=== PATIENT | male | born 1945 | race Caucasian/White ===

== ENCOUNTER 2019-10-01 03:49 | Inpatient (IN) ==
[2019-10-01] MEDS ORDERED: 0.9 % Sodium Chloride 500 ML IVC STA (04:05)
[2019-10-01 05:08] LABS: Hemoglobin 9.4 g/dL (12.9-16.9); Mean Corpuscular Volume 81.7 fL (83.0-100.0)
[2019-10-01 05:09] LABS: Hematocrit 29.1 % (37.5-50.1); Immature Granulocytes % 2.3 % (0-4); Mean Corpuscular HGB Conc 32.3 g/dL (31.6-35.5); Mean Corpuscular Hemoglobin 26.4 pg (28.0-33.3); Mean Platelet Volume 8.2 fL (9.4-12.4); Monocytes % 3.4 %; Platelet Count 634 K/mcL (140-400); Red Blood Count 3.56 M/mcL (4.19-5.50); Red Cell Distribution Width 14.7 % (11.5-14.5); Segmented Neutrophils % 93.1 %
[2019-10-01 05:10] LABS: Basophils # 0.1 K/mcL (0.0-0.2); Basophils % 0.2 %; Lymphocytes # 0.4 K/mcL (0.6-4.6); Monocytes # 1.5 K/mcL (0.0-1.3); Neutrophils # 39.8 K/mcL (1.6-8.9)
[2019-10-01 05:11] LABS: White Blood Count 42.7 K/mcL (4.3-11.1)
[2019-10-01 05:12] LABS: INR 1.4; Prothrombin Time 15.5 Seconds (9.4-12.1)
[2019-10-01 05:32] LABS: BUN/Creatinine Ratio 24 (6-26); Blood Urea Nitrogen 19 mg/dL (8-23); Calcium 9.9 mg/dL (8.6-10.3); Carbon Dioxide 30 mEq/L (23-29); Chloride 98 mEq/L (98-107); Glucose 115 mg/dL (70-105); Osmolality,Calculated 283 (280-300); Potassium 3.6 mEq/L (3.5-5.1); Sodium 135 mEq/L (136-145); Troponin I 1.03 ng/mL (< 0.04); eGFR For African Americans > 60 (> 60); eGFR For Non-African Americans > 60 (> 60)
[2019-10-01 05:36] LABS: Platelet Estimate Marked Increase (Normal)
[2019-10-01 05:53] LABS: Bilirubin,Urine Negative (Negative); Blood,Urine Large (Negative); Clarity,Urine Clear (Clear); Color,Urine Yellow (Yellow); Glucose,Urine (UA) Normal (Normal); Ketones,Urine Negative (Negative); Leukocyte Esterase,Urine Negative (Negative); Nitrite,Urine Negative (Negative); Protein,Urine 30 mg/dL (Neg-Trace); Specific Gravity,Urine 1.012 (1.010-1.025); Urobilinogen,Urine Normal (Normal)
[2019-10-01 05:56] LABS: Bacteria,Urine None Seen per hpf (None-Few); Hyaline Casts,Urine None Seen per lpf (None-Few); RBC,Urine 0-3 per hpf (0-3); Squamous Epithelial Cell,Urine Many per lpf (None-Few); WBC,Urine 0-3 per hpf (0-3)
[2019-10-01 05:56] LABS: Creatine Kinase 2815 Units/L (30-223)
[2019-10-01] MEDS ORDERED: 0.9 % Sodium Chloride 1,000 ML IVC STA (05:59)
[2019-10-01] MEDS ORDERED: Aspirin 81 MG TAB.CHEW PO STA (06:12)
[2019-10-01] MEDS ORDERED: Ondansetron 4 MG/2 ML VIAL IVP PRN (07:31)
[2019-10-01] MEDS ORDERED: Naloxone 0.4 MG/ML INJ IVP PRN (07:31)
[2019-10-01] MEDS: 0.9 % Sodium Chloride 1,000 ML IVC SCH ×2 (08:32→21:24)
[2019-10-01] MEDS: polyethylene glycoL 3350 17 GM POWD.PACK PO SCH (10:05)
[2019-10-01] MEDS: Baclofen 10 MG TABLET PO SCH ×2 (10:05→21:23)
[2019-10-01] MEDS: Cholecalciferol (D-3) 1,000 UNIT (25MCG) TABLET PO SCH ×2 (10:05→21:24)
[2019-10-01] MEDS: Cyanocobalamin (B-12) 1,000 MCG TABLET PO SCH (10:05)
[2019-10-01] MEDS: Pregabalin 75 MG CAPSULE PO SCH ×2 (10:05→21:22)
[2019-10-01] MEDS: Budesonide/Formoterol 160/4.5 1 PUFF INH IH SCH ×2 (10:11→20:28)
[2019-10-01] MEDS ORDERED: Ipratropium/Albuterol Neb 3 ML IH PRN (12:15)
[2019-10-01] MEDS: Piperacillin/Tazobactam 3.375 GM in 0.9 % Sodium Chloride Mini Bag 100 ML IVPB SCH (16:38)
[2019-10-01] MEDS: *HR* Heparin 5,000 UNIT/ML VIAL SQ SCH (16:39)
[2019-10-01] MEDS: *HR* HYDROcodone/Acet 5/325 mg TABLET PO PRN (21:22)
[2019-10-01] MEDS: Mirtazapine 15 MG TABLET PO SCH (21:22)
[2019-10-01] MEDS: Megestrol Acetate 400 MG/10 ML UDC PO SCH (21:23)
[2019-10-02] MEDS: Piperacillin/Tazobactam 3.375 GM in 0.9 % Sodium Chloride Mini Bag 100 ML IVPB SCH ×4 (00:27→23:04)
[2019-10-02 00:46] LABS: Basophils % 0.1 %; Eosinophils % 0.1 %; Immature Granulocytes % 1.4 % (0-4); Red Cell Distribution Width 14.9 % (11.5-14.5)
[2019-10-02 00:48] LABS: Hematocrit 24.9 % (37.5-50.1); Lymphocytes # 0.4 K/mcL (0.6-4.6); Lymphocytes % 1.6 %; Mean Corpuscular HGB Conc 32.1 g/dL (31.6-35.5); Mean Corpuscular Hemoglobin 26.2 pg (28.0-33.3); Mean Corpuscular Volume 81.6 fL (83.0-100.0); Mean Platelet Volume 8.3 fL (9.4-12.4); Monocytes # 1.2 K/mcL (0.0-1.3); Monocytes % 4.9 %; Neutrophils # 23.1 K/mcL (1.6-8.9); Platelet Count 572 K/mcL (140-400); Red Blood Count 3.05 M/mcL (4.19-5.50); Segmented Neutrophils % 91.9 %; White Blood Count 25.1 K/mcL (4.3-11.1)
[2019-10-02 01:03] LABS: BUN/Creatinine Ratio 23 (6-26); Blood Urea Nitrogen 15 mg/dL (8-23); Calcium 8.4 mg/dL (8.6-10.3); Carbon Dioxide 27 mEq/L (23-29); Chloride 103 mEq/L (98-107); Glucose 139 mg/dL (70-105); Osmolality,Calculated 291 (280-300); Potassium 3.2 mEq/L (3.5-5.1); Sodium 139 mEq/L (136-145); eGFR For African Americans > 60 (> 60); eGFR For Non-African Americans > 60 (> 60)
[2019-10-02] MEDS ORDERED: Potassium Chloride Elixir 20 MEQ/15 ML UDC PO ONE (07:30)
[2019-10-02] MEDS: 0.9 % Sodium Chloride 1,000 ML IVC SCH (07:32)
[2019-10-02] MEDS: *HR* Heparin 5,000 UNIT/ML VIAL SQ SCH ×2 (07:33→17:04)
[2019-10-02] MEDS ORDERED: POTASSIUM CHLORIDE 10 MEQ PO SCH (09:00)
[2019-10-02] MEDS ORDERED: Isovue-370 500 ML BOTTLE IVP ONE (09:10)
[2019-10-02] MEDS: Megestrol Acetate 400 MG/10 ML UDC PO SCH ×2 (10:13→19:57)
[2019-10-02] MEDS: Pregabalin 75 MG CAPSULE PO SCH ×2 (10:14→19:57)
[2019-10-02] MEDS: Baclofen 10 MG TABLET PO SCH ×2 (10:14→19:49)
[2019-10-02] MEDS: Cyanocobalamin (B-12) 1,000 MCG TABLET PO SCH (10:14)
[2019-10-02] MEDS: Cholecalciferol (D-3) 1,000 UNIT (25MCG) TABLET PO SCH ×2 (10:15→19:52)
[2019-10-02] MEDS: Budesonide/Formoterol 160/4.5 1 PUFF INH IH SCH ×2 (10:35→20:15)
[2019-10-02 14:08] LABS: Folate 14.1 ng/mL (3.0-16.0)
[2019-10-02] MEDS ORDERED: Gadolinium Contrast Agent (WT Based) IV PRN (15:35)
[2019-10-02] MEDS: Mirtazapine 15 MG TABLET PO SCH (19:57)
[2019-10-02] MEDS: Aspirin Enteric Coated 81 MG Tablet PO SCH (19:57)
[2019-10-02] MEDS ORDERED: *HR* Metoprolol 5 MG/5 ML VIAL IVP ONE (22:50)
[2019-10-03 00:03] LABS: VBG HCO3 26 mEq/L (21-27); VBG Ionized Calcium 1.13 mmol/L (1.15-1.35); VBG PCO2 26 mmHg (41-51); VBG PO2 120 mmHg (25-50)
[2019-10-03 00:11] LABS: Magnesium 1.7 mg/dL (1.6-2.6); Phosphorous 2.5 mg/dL (2.7-4.5)
[2019-10-03 00:12] LABS: Alanine Aminotransferase 37 Units/L (7-52); Albumin 2.4 g/dL (3.5-5.7); Albumin/Globulin Ratio 1.1 (1.1-2.2); Alkaline Phosphatase 113 Units/L (34-104); Aspartate Amino Transferase 33 Units/L (13-39); BUN/Creatinine Ratio 19 (6-26); Bilirubin,Total 0.8 mg/dL (0.3-1.0); Blood Urea Nitrogen 12 mg/dL (8-23); Calcium 8.3 mg/dL (8.6-10.3); Carbon Dioxide 23 mEq/L (23-29); Chloride 105 mEq/L (98-107); Globulin 2.1 g/dL (2.4-3.5); Glucose 148 mg/dL (70-105); Osmolality,Calculated 289 (280-300); Potassium 3.4 mEq/L (3.5-5.1); Sodium 138 mEq/L (136-145); Total Protein 4.5 g/dL (6.4-8.9); eGFR For African Americans > 60 (> 60); eGFR For Non-African Americans > 60 (> 60)
[2019-10-03] MEDS ORDERED: Calcium Gluconate 1gm/50mL 1 GM/50 ML BAG IVPB ONE (00:27)
[2019-10-03] MEDS ORDERED: Ringers Solution, Lactated 500 ML IVC ONE (00:27)
[2019-10-03 00:37] LABS: Basophils # 0.1 K/mcL (0.0-0.2); Basophils % 0.2 %; Hematocrit 28.1 % (37.5-50.1); Hemoglobin 8.3 g/dL (12.9-16.9); Immature Granulocytes % 1.4 % (0-4); Lymphocytes # 0.8 K/mcL (0.6-4.6); Lymphocytes % 2.9 %; Mean Corpuscular HGB Conc 29.5 g/dL (31.6-35.5); Mean Corpuscular Hemoglobin 26.3 pg (28.0-33.3); Mean Corpuscular Volume 88.9 fL (83.0-100.0); Mean Platelet Volume 9.3 fL (9.4-12.4); Monocytes # 1.1 K/mcL (0.0-1.3); Neutrophils # 25.7 K/mcL (1.6-8.9); Platelet Count 462 K/mcL (140-400); Red Blood Count 3.16 M/mcL (4.19-5.50); Red Cell Distribution Width 15.7 % (11.5-14.5); Segmented Neutrophils % 91.5 %; White Blood Count 28.1 K/mcL (4.3-11.1)
[2019-10-03 01:04] LABS: Platelet Estimate Increased (Normal)
[2019-10-03] MEDS: *HR* Heparin 5,000 UNIT/ML VIAL SQ SCH ×2 (05:15→16:31)
[2019-10-03] MEDS: Budesonide/Formoterol 160/4.5 1 PUFF INH IH SCH ×2 (07:36→21:54)
[2019-10-03 08:19] LABS: Hemoglobin 8.1 g/dL (12.9-16.9); Mean Platelet Volume 8.7 fL (9.4-12.4)
[2019-10-03 08:20] LABS: Mean Corpuscular HGB Conc 31.2 g/dL (31.6-35.5); Mean Corpuscular Hemoglobin 26.2 pg (28.0-33.3); Mean Corpuscular Volume 84.1 fL (83.0-100.0); Platelet Count 519 K/mcL (140-400); Red Blood Count 3.09 M/mcL (4.19-5.50); Red Cell Distribution Width 15.3 % (11.5-14.5)
[2019-10-03 08:57] LABS: Basophils # 0.1 K/mcL (0.0-0.2); Basophils % 0.2 %; Eosinophils # 0.1 K/mcL (0.0-0.6); Eosinophils % 0.2 %; Immature Granulocytes % 1.1 % (0-4); Lymphocytes # 0.7 K/mcL (0.6-4.6); Lymphocytes % 2.7 %; Monocytes # 1.3 K/mcL (0.0-1.3); Monocytes % 5.2 %; Nucleated Red Blood Cells 0.1 /100 WBC (0); Segmented Neutrophils % 90.6 %
[2019-10-03 08:59] LABS: Neutrophils # 21.7 K/mcL (1.6-8.9)
[2019-10-03 09:15] LABS: % Iron Saturation 8 % (20-55); BUN/Creatinine Ratio 20 (6-26); Blood Urea Nitrogen 11 mg/dL (8-23); Carbon Dioxide 28 mEq/L (23-29); Chloride 104 mEq/L (98-107); Glucose 155 mg/dL (70-105); Iron 12 mcg/dL (65-175); Magnesium 1.8 mg/dL (1.6-2.6); Osmolality,Calculated 291 (280-300); Phosphorous 3.2 mg/dL (2.7-4.5); Potassium 3.4 mEq/L (3.5-5.1); Sodium 139 mEq/L (136-145); Transferrin 107 mg/dL (203-362); eGFR For African Americans > 60 (> 60); eGFR For Non-African Americans > 60 (> 60)
[2019-10-03 09:32] LABS: Ferritin 842 ng/mL (20-250)
[2019-10-03 09:33] LABS: Platelet Estimate Increased (Normal)
[2019-10-03] MEDS: Megestrol Acetate 400 MG/10 ML UDC PO SCH ×2 (09:36→21:28)
[2019-10-03] MEDS: Cyanocobalamin (B-12) 1,000 MCG TABLET PO SCH (09:37)
[2019-10-03] MEDS: polyethylene glycoL 3350 17 GM POWD.PACK PO SCH (09:37)
[2019-10-03] MEDS: Pregabalin 75 MG CAPSULE PO SCH ×2 (09:37→21:29)
[2019-10-03] MEDS: Piperacillin/Tazobactam 3.375 GM in 0.9 % Sodium Chloride Mini Bag 100 ML IVPB SCH ×3 (09:38→23:54)
[2019-10-03] MEDS: Cholecalciferol (D-3) 1,000 UNIT (25MCG) TABLET PO SCH ×2 (09:39→21:29)
[2019-10-03] MEDS: Baclofen 10 MG TABLET PO SCH ×2 (09:39→21:29)
[2019-10-03] MEDS ORDERED: 0.9 % Sodium Chloride 1,000 ML ONE (09:42)
[2019-10-03] MEDS: Levalbuterol Neb 1.25 MG/3 ML IH SCH ×3 (10:44→21:54)
[2019-10-03] MEDS ORDERED: Isovue-370 500 ML BOTTLE IVP ONE (10:52)
[2019-10-03] MEDS: Ringers Solution, Lactated 1,000 ML IVC SCH (16:33)
[2019-10-03] MEDS: Mirtazapine 15 MG TABLET PO SCH (21:29)
[2019-10-03] MEDS: Aspirin Enteric Coated 81 MG Tablet PO SCH (21:29)
[2019-10-04] MEDS: Levalbuterol Neb 1.25 MG/3 ML IH SCH ×4 (03:20→22:18)
[2019-10-04] MEDS: *HR* Heparin 5,000 UNIT/ML VIAL SQ SCH ×2 (05:41→17:45)
[2019-10-04 05:47] LABS: Basophils % 0.2 %; Eosinophils % 0.2 %; Monocytes % 4.4 %; Red Cell Distribution Width 15.4 % (11.5-14.5)
[2019-10-04 05:49] LABS: Eosinophils # 0.1 K/mcL (0.0-0.6); Hematocrit 28.2 % (37.5-50.1); Hemoglobin 8.5 g/dL (12.9-16.9); Immature Granulocytes % 1.6 % (0-4); Immature Platelets 6.1 % (1.1-6.1); Lymphocytes # 0.4 K/mcL (0.6-4.6); Lymphocytes % 1.4 %; Mean Corpuscular HGB Conc 30.1 g/dL (31.6-35.5); Mean Corpuscular Hemoglobin 25.5 pg (28.0-33.3); Mean Corpuscular Volume 84.7 fL (83.0-100.0); Monocytes # 1.1 K/mcL (0.0-1.3); Platelet Count 325 K/mcL (140-400); Red Blood Count 3.33 M/mcL (4.19-5.50); Segmented Neutrophils % 92.2 %
[2019-10-04 06:08] LABS: BUN/Creatinine Ratio 16 (6-26); Basophils # 0.1 K/mcL (0.0-0.2); Blood Urea Nitrogen 9 mg/dL (8-23); Calcium 9.1 mg/dL (8.6-10.3); Carbon Dioxide 23 mEq/L (23-29); Chloride 106 mEq/L (98-107); Glucose 130 mg/dL (70-105); Magnesium 1.7 mg/dL (1.6-2.6); Neutrophils # 23.1 K/mcL (1.6-8.9); Osmolality,Calculated 286 (280-300); Phosphorous 2.7 mg/dL (2.7-4.5); Potassium 3.6 mEq/L (3.5-5.1); Sodium 138 mEq/L (136-145); eGFR For African Americans > 60 (> 60); eGFR For Non-African Americans > 60 (> 60)
[2019-10-04 06:09] LABS: Platelet Estimate Normal (Normal)
[2019-10-04] MEDS ORDERED: *HR* Dextrose 50 % in Water (Syg) 50 ML SYRINGE IVP PRN (08:16)
[2019-10-04] MEDS ORDERED: Dextrose Gel 15 GM/37.5 ML TUBE PO PRN ×2 (08:16)
[2019-10-04] MEDS ORDERED: D5% in Water 1,000 ML IVC PRN (08:16)
[2019-10-04] MEDS: Baclofen 10 MG TABLET PO SCH ×2 (08:30→20:36)
[2019-10-04] MEDS: Megestrol Acetate 400 MG/10 ML UDC PO SCH ×2 (08:31→20:36)
[2019-10-04] MEDS: Pregabalin 75 MG CAPSULE PO SCH ×2 (08:31→20:36)
[2019-10-04] MEDS: Cyanocobalamin (B-12) 1,000 MCG TABLET PO SCH (10:37)
[2019-10-04] MEDS: Cholecalciferol (D-3) 1,000 UNIT (25MCG) TABLET PO SCH ×2 (10:38→20:36)
[2019-10-04] MEDS: Piperacillin/Tazobactam 3.375 GM in 0.9 % Sodium Chloride Mini Bag 100 ML IVPB SCH ×2 (10:48→17:46)
[2019-10-04] MEDS: Budesonide/Formoterol 160/4.5 1 PUFF INH IH SCH ×2 (11:05→22:18)
[2019-10-04 11:06] LABS: ABG Base Excess 5 mEq/L (-2 to 3); ABG HCO3 27 mEq/L (21-27); ABG Oxygen Saturation 93 % (95-98); ABG PCO2 31 mmHg (35-45); ABG PH 7.55 pH Units (7.32-7.45); ABG PO2 56 mmHg (85-104); ABG TCO2 28 mEq/L (20-26)
[2019-10-04] MEDS ORDERED: Insulin LISPRO 300 UNITS/3 ML VIAL SQ SCH (12:00)
[2019-10-04] MEDS ORDERED: *HR* FentaNYL (PF) 100 MCG/2 ML VIAL IVP ONE (14:21)
[2019-10-04] MEDS ORDERED: *HR* Midazolam HCl 5 MG/5 ML VIAL IVP ONE (14:21)
[2019-10-04] MEDS ORDERED: *HR* Midazolam HCl 2 MG/2 ML VIAL ONE (14:42)
[2019-10-04] MEDS ORDERED: 0.9 % Sodium Chloride 500 ML ONE (14:42)
[2019-10-04] MEDS: Ringers Solution, Lactated 1,000 ML IVC SCH ×2 (15:57→15:58)
[2019-10-04] MEDS ORDERED: Isovue-370 500 ML BOTTLE IVP ONE (16:59)
[2019-10-04] MEDS ORDERED: Ringers Solution, Lactated 1,000 ML IVC SCH (17:00)
[2019-10-04] MEDS: Metoprolol XL (24 HR) Succ 25 MG TAB.ER.24H PO SCH (17:46)
[2019-10-04] MEDS: Aspirin Enteric Coated 81 MG Tablet PO SCH (20:36)
[2019-10-04] MEDS: Mirtazapine 15 MG TABLET PO SCH (20:36)
[2019-10-04] MEDS ORDERED: *HR* Metoprolol 5 MG/5 ML VIAL IVP ONE (21:46)
[2019-10-05] MEDS: Piperacillin/Tazobactam 3.375 GM in 0.9 % Sodium Chloride Mini Bag 100 ML IVPB SCH ×4 (00:08→22:53)
[2019-10-05] MEDS: Levalbuterol Neb 1.25 MG/3 ML IH SCH ×4 (03:47→22:30)
[2019-10-05] MEDS: *HR* Heparin 5,000 UNIT/ML VIAL SQ SCH ×2 (04:21→16:45)
[2019-10-05 05:18] LABS: Eosinophils % 0.3 %
[2019-10-05 05:20] LABS: Basophils # 0.1 K/mcL (0.0-0.2); Basophils % 0.2 %; Eosinophils # 0.1 K/mcL (0.0-0.6); Hematocrit 23.5 % (37.5-50.1); Hemoglobin 7.3 g/dL (12.9-16.9); Lymphocytes # 0.5 K/mcL (0.6-4.6); Lymphocytes % 1.9 %; Mean Corpuscular HGB Conc 31.1 g/dL (31.6-35.5); Mean Corpuscular Volume 83.6 fL (83.0-100.0); Mean Platelet Volume 8.8 fL (9.4-12.4); Monocytes # 1.3 K/mcL (0.0-1.3); Monocytes % 4.7 %; Neutrophils # 25.5 K/mcL (1.6-8.9); Platelet Count 570 K/mcL (140-400); Red Blood Count 2.81 M/mcL (4.19-5.50); Red Cell Distribution Width 15.4 % (11.5-14.5); Segmented Neutrophils % 91.9 %; White Blood Count 27.7 K/mcL (4.3-11.1)
[2019-10-05 05:38] LABS: BUN/Creatinine Ratio 18 (6-26); Blood Urea Nitrogen 11 mg/dL (8-23); Calcium 9.4 mg/dL (8.6-10.3); Carbon Dioxide 24 mEq/L (23-29); Chloride 105 mEq/L (98-107); Glucose 108 mg/dL (70-105); Magnesium 1.8 mg/dL (1.6-2.6); Osmolality,Calculated 290 (280-300); Phosphorous 3.5 mg/dL (2.7-4.5); Potassium 3.3 mEq/L (3.5-5.1); Sodium 140 mEq/L (136-145); eGFR For African Americans > 60 (> 60); eGFR For Non-African Americans > 60 (> 60)
[2019-10-05 05:59] LABS: Platelet Estimate Increased (Normal)
[2019-10-05 09:18] LABS: Hematocrit 24.9 % (37.5-50.1); Hemoglobin 7.8 g/dL (12.9-16.9)
[2019-10-05] MEDS: Budesonide/Formoterol 160/4.5 1 PUFF INH IH SCH ×2 (09:18→22:30)
[2019-10-05] MEDS: Megestrol Acetate 400 MG/10 ML UDC PO SCH ×2 (09:30→20:28)
[2019-10-05] MEDS: Pregabalin 75 MG CAPSULE PO SCH ×2 (09:31→20:28)
[2019-10-05] MEDS: Cyanocobalamin (B-12) 1,000 MCG TABLET PO SCH (09:31)
[2019-10-05] MEDS: Cholecalciferol (D-3) 1,000 UNIT (25MCG) TABLET PO SCH ×2 (09:32→20:28)
[2019-10-05] MEDS: Baclofen 10 MG TABLET PO SCH ×2 (09:32→20:28)
[2019-10-05] MEDS: Metoprolol XL (24 HR) Succ 25 MG TAB.ER.24H PO SCH (09:32)
[2019-10-05] MEDS: polyethylene glycoL 3350 17 GM POWD.PACK PO SCH (09:34)
[2019-10-05] MEDS ORDERED: Aminoglycoside Consult 1 EACH MC ONE (10:39)
[2019-10-05] MEDS ORDERED: *HR* Metoprolol 5 MG/5 ML VIAL IVP ONE (16:36)
[2019-10-05] MEDS: Mirtazapine 15 MG TABLET PO SCH (20:28)
[2019-10-05] MEDS: Aspirin Enteric Coated 81 MG Tablet PO SCH (20:28)
[2019-10-06 03:46] LABS: Eosinophils % 0.2 %
[2019-10-06 03:48] LABS: Basophils % 0.1 %; Eosinophils # 0.1 K/mcL (0.0-0.6); Hematocrit 22.3 % (37.5-50.1); Hemoglobin 7.1 g/dL (12.9-16.9); Immature Granulocytes % 1.5 % (0-4); Lymphocytes % 1.5 %; Mean Corpuscular HGB Conc 31.8 g/dL (31.6-35.5); Mean Corpuscular Hemoglobin 26.3 pg (28.0-33.3); Mean Corpuscular Volume 82.6 fL (83.0-100.0); Mean Platelet Volume 8.6 fL (9.4-12.4); Monocytes # 1.2 K/mcL (0.0-1.3); Platelet Count 508 K/mcL (140-400); Red Cell Distribution Width 15.4 % (11.5-14.5); Segmented Neutrophils % 92.7 %; White Blood Count 29.1 K/mcL (4.3-11.1)
[2019-10-06] MEDS: Levalbuterol Neb 1.25 MG/3 ML IH SCH ×4 (03:51→22:16)
[2019-10-06 03:57] LABS: Lymphocytes # 0.4 K/mcL (0.6-4.6)
[2019-10-06 04:06] LABS: BUN/Creatinine Ratio 19 (6-26); Blood Urea Nitrogen 12 mg/dL (8-23); Calcium 9.2 mg/dL (8.6-10.3); Carbon Dioxide 26 mEq/L (23-29); Chloride 105 mEq/L (98-107); Glucose 120 mg/dL (70-105); Osmolality,Calculated 289 (280-300); Potassium 3.9 mEq/L (3.5-5.1); Sodium 139 mEq/L (136-145); eGFR For African Americans > 60 (> 60); eGFR For Non-African Americans > 60 (> 60)
[2019-10-06] MEDS: *HR* Heparin 5,000 UNIT/ML VIAL SQ SCH ×2 (05:38→16:41)
[2019-10-06] MEDS: Metoprolol XL (24 HR) Succ 25 MG TAB.ER.24H PO SCH (08:42)
[2019-10-06] MEDS: Pregabalin 75 MG CAPSULE PO SCH ×2 (08:42→21:18)
[2019-10-06] MEDS: Piperacillin/Tazobactam 3.375 GM in 0.9 % Sodium Chloride Mini Bag 100 ML IVPB SCH (08:43)
[2019-10-06] MEDS: Cyanocobalamin (B-12) 1,000 MCG TABLET PO SCH (08:43)
[2019-10-06] MEDS: Baclofen 10 MG TABLET PO SCH ×2 (08:43→21:18)
[2019-10-06] MEDS: Cholecalciferol (D-3) 1,000 UNIT (25MCG) TABLET PO SCH ×2 (08:44→21:18)
[2019-10-06] MEDS: *HR* HYDROcodone/Acet 5/325 mg TABLET PO PRN (10:23)
[2019-10-06] MEDS: Megestrol Acetate 400 MG/10 ML UDC PO SCH ×2 (10:26→21:18)
[2019-10-06] MEDS: Budesonide/Formoterol 160/4.5 1 PUFF INH IH SCH ×2 (10:37→22:16)
[2019-10-06] MEDS: Aspirin Enteric Coated 81 MG Tablet PO SCH (21:17)
[2019-10-06] MEDS: Mirtazapine 15 MG TABLET PO SCH (21:17)
[2019-10-07] MEDS: Levalbuterol Neb 1.25 MG/3 ML IH SCH ×2 (03:19→10:00)
[2019-10-07] MEDS: *HR* Heparin 5,000 UNIT/ML VIAL SQ SCH (05:26)
[2019-10-07 06:33] VITALS: BP 102/60
[2019-10-07] MEDS: Megestrol Acetate 400 MG/10 ML UDC PO SCH (09:19)
[2019-10-07] MEDS: polyethylene glycoL 3350 17 GM POWD.PACK PO SCH (09:20)
[2019-10-07] MEDS: Pregabalin 75 MG CAPSULE PO SCH (09:20)
[2019-10-07] MEDS: Cyanocobalamin (B-12) 1,000 MCG TABLET PO SCH (09:20)
[2019-10-07] MEDS: Cholecalciferol (D-3) 1,000 UNIT (25MCG) TABLET PO SCH (09:20)
[2019-10-07] MEDS: Baclofen 10 MG TABLET PO SCH (09:20)
[2019-10-07] MEDS: Metoprolol XL (24 HR) Succ 25 MG TAB.ER.24H PO SCH (09:20)
[2019-10-07] MEDS: Budesonide/Formoterol 160/4.5 1 PUFF INH IH SCH (10:00)
== END 2019-10-07 10:40 | disposition hospice, home (50) | DRG 871 ==
LOC: 2ANU 03:49 → EMEROOARM 03:49 → SUATTDRO 06:57 → 2ANU 07:49 → SUATTDRO 10-03 11:11
PROVIDERS: ADMIT Family Medicine; ATTEND Student in an Organized Health Care Education/Training Program